=== PATIENT | female | born 1990 | race Caucasian/White ===

== ENCOUNTER → 2020-11-18 09:49 | Outpatient (CLI) | payer OTHER, SELFPAY ==
[2020-11-18 19:51] LABS: SARS-CoV-2 RNA PCR Negative
== END ==
PROVIDERS: PCP Family Medicine; Visit Provider Family Medicine
DX: Z20.822 Contact with and (suspected) exposure to COVID-19 (principal)
CPT/HCPCS: C9803; U0003; U0005

== ENCOUNTER 2020-11-19 11:34 | Outpatient (CLI) | payer OTHER, BC, SELFPAY ==
[2020-11-19 12:50] LABS: Influenza Control Positive
== END 2020-11-19 11:35 | disposition home or self-care (01) ==
PROVIDERS: PCP Family Medicine; Visit Provider Family Medicine
DX: J02.9 Acute pharyngitis, unspecified (principal)
CPT/HCPCS: 87081; 87804; 87880